=== PATIENT | female | born 1955 | race Caucasian/White ===

== ENCOUNTER → 2016-08-20 | Outpatient (CLI) | payer OTHER | LOC: CIMAGING 07:28 | DX: Z12.31 Encounter for screening mammogram for malignant neoplasm of breast (principal); Z86.000 Personal history of in-situ neoplasm of breast | CPT/HCPCS: G0202 ==

== ENCOUNTER 2017-03-24 10:48 | Emergency (ER) | payer OTHER ==
[2017-03-24 11:05] VITALS: TEMP 98.2
[2017-03-24] MEDS ORDERED: ONDANSETRON DISINTEGRATING 4 MG TAB PO ONE (11:12)
[2017-03-24] MEDS ORDERED: IPRATROPIUM/ALBUTEROL 3 ML DEYVIAL IH ONE (11:12)
--- NOTE | 2017-03-24 11:16 | EDPHY ---
H & P Time Seen by Provider: 03/24/17 11:01 HPI/ROS: Chief complaint. Cough HPI. Patient is a 61-year-old female with 1 week history of upper respiratory infection. 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 She has had congestion and cough that is productive of clear mucus. She somewhat dizzy on standing and nauseated at times 4 days ago she got up to go to the bathroom in the middle night and passed out on the way to the bathroom and then again on the way back. She was not injured. She has not had any chest discomfort. Slight shortness of breath which is common when she gets an illness. She has had nausea without vomiting. Denies abdominal pain. She does have some urinary frequency but no dysuria. Decreased appetite. No fever. No unusual leg pain or swelling. ROS Constitutional. no fever/chills, no weakness Eyes. no problems with vision ENT. Congestion Cardiovascular. no chest pain Respiratory. Cough and shortness of breath Abdominal. no abdominal pain, no nausea/vomiting, no diarrhea . no problems urinating MS. no calf pain/swelling, no neck/back pain, no joint pain Skin. no rash Lymph. no swollen glands Neuro. Dizziness on standing and syncope 4 days ago Past Medical/Surgical History: Past medical history significant for cholecystectomy and hypertension Social History: Single, nonsmoker, no alcohol Smoking Status: Never smoked Physical Exam: General Appearance: Alert well-developed female mild distress vital signs stable and significant for O2 saturation 89% on room air Eyes: Pupils equal and round no pallor or injection. ENT, tympanic membranes are normal. Pharynx without injection. Mucous membranes are moist Respiratory: No retractions. Mild inspiratory expiratory rhonchi. Cardiovascular: Regular rate and rhythm. Gastrointestinal: Abdomen is soft and nontender, no masses, bowel sounds normal. Neurological: Awake and alert, sensory and motor exams grossly normal. Skin: Warm and dry, no rashes. Musculoskeletal: Neck is supple nontender. Extremities symmetrical, full range of motion. Psychiatric: Patient is oriented X 3, there is no agitation. Constitutional: Initial Vital Signs Temperature (C) 36.8 C 03/24/17 11:03 Heart Rate 67 03/24/17 11:03 Respiratory Rate 20 03/24/17 11:03 Blood Pressure 129/85 H 03/24/17 11:03 O2 Sat (%) 89 L 03/24/17 11:03 O2 Delivery Mode Room Air Allergies/Adverse Reactions: Penicillins Allergy (Verified 03/24/17 11:01) Home Medications: Medication Instructions Recorded Triamterene/Hydrochlorothiazid 11/02/15 Albuterol [Proventil Inhaler HFA 2 puffs IH Q4 #1 mdi 03/24/17 (*)] Azithromycin [Zithromax] 250 mg PO DAILY #6 tab 03/24/17 Ondansetron Odt [Zofran Odt] 4 mg PO Q4PRN PRN #4 tab 03/24/17 Medical Decision Making - Diagnostics Imaging Results: Imaging Impressions Chest X-Ray 03/24/17 11:13 Impression: Central peribronchial thickening which could be related to bronchitis/airways disease, with basilar atelectasis. Chest x-ray interpreted by me consistent with bronchitis but no evidence for pneumonia Procedures: Zofran ODT DuoNeb updraft ED Course/Re-evaluation: On re-evaluation patient is stable. Listening to her lungs again and she has decreased rhonchi but slight end-expiratory wheezing. Patient and I discussed imaging study results, treatment plan including criteria for return importance of follow-up and further evaluation. She expresses understanding and agreement Differential Diagnosis: I think that this is likely viral syndrome. She has had productive cough. She has no fever. She did have travel but has no unusual leg pain or swelling. She has no chest discomfort or pleuritic findings. I think that her passing out episode 4 days ago was likely due to illness and decreased oral intake. She has not had any chest discomfort I do not think that this was due to acute coronary syndrome or pulmonary embolus. - Data Points Medications Given: Discontinued Medications Albuterol/Ipratropium (Duoneb) 3 ml IH EDNOW ONE Stop: 03/24/17 11:13 Last Admin: 03/24/17 11:28 Dose: 3 ml Ondansetron HCl (Zofran Odt) 4 mg PO EDNOW ONE Stop: 03/24/17 11:13 Last Admin: 03/24/17 11:28 Dose: 4 mg Departure - Departure Disposition: Home, Routine, Self-Care Clinical Impression: Bronchitis Condition: Good Instructions: Acute Bronchitis (ED) Additional Instructions: Frequent, small sips fluids well nauseated. Gradual diet advancement. Zofran if needed for nausea. Albuterol inhaler using 2 puffs every 4 hours for the next 1-2 days. Zithromax if not improving in 2 days. Return for worsening symptoms, further passing out episodes, worsening shortness of breath or chest discomfort. Recheck in 2 days if not improved Referrals: Brady Jovel MD [Primary Care Provider] - 2-3 days, if not improved Stand Alone Forms: Work Excuse Prescriptions: Albuterol [Proventil Inhaler HFA (*)] 2 puffs IH Q4 #1 mdi Azithromycin [Zithromax] 250 mg PO DAILY #6 tab Ondansetron Odt [Zofran Odt] 4 mg PO Q4PRN PRN #4 tab PRN Reason: Nausea/Vomiting, Use 1st
[2017-03-24 17:10] VITALS: BP 113/76; PULSE 75; RESP 18; O2SAT 92
== END 2017-03-24 12:25 | disposition home or self-care (01) ==
LOC: CED 10:48
DX: J20.9 Acute bronchitis, unspecified (principal); I10 Essential (primary) hypertension
CPT/HCPCS: 71020-PO

== ENCOUNTER → 2017-09-09 | Outpatient (CLI) | payer OTHER | LOC: CIMAGING 07:12 | PROVIDERS: ATTEND Internal Medicine | DX: Z12.31 Encounter for screening mammogram for malignant neoplasm of breast (principal); Z85.3 Personal history of malignant neoplasm of breast ==

== ENCOUNTER → 2018-09-18 | Outpatient (CLI) | payer OTHER, MEDICARE | LOC: CIMAGING 07:24 | PROVIDERS: ATTEND Internal Medicine | DX: Z12.31 Encounter for screening mammogram for malignant neoplasm of breast (principal); Z85.3 Personal history of malignant neoplasm of breast ==